=== PATIENT | female | born 1975 | race Caucasian/White ===

== ENCOUNTER → 2016-11-19 | Outpatient (CLI) | payer BC ==
--- NOTE | 2016-11-19 13:15 | US ---
Left Breast Ultrasound History: Evaluate palpable area on the inferior periphery of the left breast. Technique: Longitudinal and transverse images were obtained utilizing a 15 MHz transducer. Findings: The asymmetry is identified on physical examination. Sonographic interrogation of the regio n demonstrates normal glandular elements. No solid or cystic mass is seen.. Impression: Benign breast ultrasound, BI-RADS 2.. Recommendation: Routine mammographic screening at the age of 42 as long as physical examination is be nign.. Findings and follow-up recommendations were reviewed with the patient in detail. [facility] will send a result letter to the patient.
== END ==
LOC: FIMAGING 09:16
PROVIDERS: ATTEND Family Medicine
DX: R92.2 Inconclusive mammogram (principal)